=== PATIENT | female | born 1950 | race Caucasian/White ===

== ENCOUNTER 2016-08-16 09:04 | Inpatient (IN) | payer MEDICARE ==
[2016-08-14 14:06] LABS: BLOOD UREA NITROGEN 11 mg/dL (7-18)
[2016-08-14 14:10] LABS: ASPARTATE AMINO TRANSFERASE 39 U/L (15-37)
[~2016-08-16] VITALS: Ht 162.6 cm; Wt 76.3 kg
[~2016-08-16 09:04] MED LIST: AMLO5TAB2 PO; BUPIVACAINE/PF-EPI 0.25% 1:200K ONE; CELE200C PO; DULO30CA2 PO; ESTR5VIA IM; FURO-93 PO; HYDR-3138 PO; LEVO100T5 PO; LISI-170 PO; NEOSPORIN OINT, 15GM ONE; PREG100C PO; THROMBIN 5,000 UNIT VIAL TP ONE
[2016-08-16 09:34] VITALS: BP 167/96
[2016-08-16] MEDS ORDERED: VALIUM PO (09:44)
[2016-08-16] MEDS ORDERED: [UNRECOGNIZED DRUG - OTHER] PO (09:44)
[2016-08-16] MEDS ORDERED: ASPI-650 PO (09:44)
[2016-08-16] MEDS ORDERED: LIDOCAINE 1%, 2ML ONE (09:54)
[2016-08-16] MEDS ORDERED: LACTATED RINGERS 1,000 ML IV SCH (10:03)
[2016-08-16] MEDS ORDERED: MIDAZOLAM 1 MG/ML, 2ML ONE ×2 (10:40)
[2016-08-16] MEDS ORDERED: FENTANYL PF 250 MCG/5ML ONE ×2 (10:40)
[2016-08-16] MEDS ORDERED: REMIFENTANIL 2 MG ONE ×3 (10:53→14:54)
[2016-08-16] MEDS ORDERED: PROPOFOL 10 MG/ML, 20ML ONE (11:00)
[2016-08-16] MEDS ORDERED: SUCCINYLCHOLINE 20 MG/ML, 10ML ONE (11:00)
[2016-08-16] MEDS ORDERED: ONDANSETRON 2MG/ML, 2ML ONE (11:00)
[2016-08-16] MEDS ORDERED: CEFAZOLIN 1,000 MG ONE (11:00)
[2016-08-16] MEDS ORDERED: METOCLOPRAMIDE 5 MG/ML, 2ML ONE (11:00)
[2016-08-16] MEDS ORDERED: PROPOFOL 10 MG/ML, 50ML ONE (11:00)
[2016-08-16] MEDS ORDERED: PHENYLEPHRINE 10 MG/ML ONE (11:00)
[2016-08-16] MEDS ORDERED: BISACODYL 10 MG SUPP PR PRN (11:30)
[2016-08-16] MEDS ORDERED: PHARMACY MAY ADJ FOR RENAL FX MC PRN (11:30)
[2016-08-16] MEDS ORDERED: KETAMINE 10 MG/ML, 20ML ONE (11:59)
[2016-08-16] MEDS ORDERED: PROMETHAZINE 25 MG/ML, 1ML IV PRN (13:30)
[2016-08-16] MEDS ORDERED: LABETALOL 5MG/ML, 20ML IV PRN (13:30)
[2016-08-16] MEDS ORDERED: MIDAZOLAM 1 MG/ML, 2ML IV PRN (13:30)
[2016-08-16] MEDS ORDERED: ONDANSETRON 2MG/ML, 2ML IVPush PRN (13:30)
[2016-08-16] MEDS ORDERED: OXYcodone 5 MG/5 ML ORAL.SOL UDC PO PRN (13:30)
[2016-08-16] MEDS ORDERED: FENTANYL PF 100 MCG/2ML IV PRN (13:30)
[2016-08-16] MEDS ORDERED: MEPERIDINE/PF 25MG/0.5ML IVPush PRN (13:30)
[2016-08-16] MEDS ORDERED: hydrALAzine 20 MG/ML, 1ML IV PRN (13:30)
[2016-08-16] MEDS ORDERED: HYDROmorphone 1 MG/ML, 1ML ONE (15:36)
[2016-08-16] MEDS: PREGABALIN 100 MG CAPSULE PO SCH ×2 (16:00→20:06)
[2016-08-16] MEDS ORDERED: HYDROmorphone 2 MG/ML, 1ML ONE ×2 (16:02→16:16)
[2016-08-16] MEDS ORDERED: FENTANYL PF 100 MCG/2ML ONE (16:02)
[2016-08-16] MEDS: HYDROmorphone 1 MG/ML, 1ML IV PRN ×4 (16:22→16:42)
[2016-08-16] MEDS: METHOCARBAMOL 750 MG TABLET PO PRN ×2 (16:42→16:49)
[2016-08-16] MEDS ORDERED: METHOCARBAMOL 750 MG TABLET ONE (16:44)
[2016-08-16 17:50] VITALS: BP 112/53
[2016-08-16 18:53] VITALS: BP 115/54
[2016-08-16] MEDS: D5%-0.9% NACL+KCL 20MEQ 1,000 ML IV SCH (20:05)
[2016-08-16] MEDS: CEFAZOLIN PMX 1GM/50ML 50 ML IVPB SCH (20:05)
[2016-08-16] MEDS: HYDROmorphone 2MG TABLET PO PRN (20:06)
[2016-08-16] MEDS: ONDANSETRON 2MG/ML, 2ML IVPush PRN (21:58)
[2016-08-16 23:19] VITALS: BP 154/85
[2016-08-17] MEDS: METHOCARBAMOL 750 MG TABLET PO PRN ×3 (00:58→17:08)
[2016-08-17] MEDS: HYDROmorphone 2MG TABLET PO PRN ×3 (00:59→23:20)
[2016-08-17] MEDS: DULOXETINE 30 MG CAPSULE.DR PO SCH ×2 (01:30→21:29)
[2016-08-17 04:18] VITALS: BP 166/85
[2016-08-17] MEDS: CEFAZOLIN PMX 1GM/50ML 50 ML IVPB SCH (04:26)
[2016-08-17] MEDS: ONDANSETRON 2MG/ML, 2ML IVPush PRN (04:26)
[2016-08-17 07:25] VITALS: BP 147/53
[2016-08-17] MEDS: LISINOPRIL 20 MG TABLET PO SCH (08:12)
[2016-08-17] MEDS: LEVOTHYROXINE 100 MCG TABLET PO SCH (08:13)
[2016-08-17] MEDS: HYDROcodone/APAP 5/325 TABLET PO PRN ×4 (08:13→21:29)
[2016-08-17] MEDS: AMLODIPINE 5 MG TABLET PO SCH (08:13)
[2016-08-17] MEDS: PREGABALIN 100 MG CAPSULE PO SCH ×3 (08:13→21:29)
[2016-08-17] MEDS ORDERED: DULOXETINE 30 MG CAPSULE.DR PO SCH (09:00)
[2016-08-17] MEDS: D5%-0.9% NACL+KCL 20MEQ 1,000 ML IV SCH ×2 (10:54→21:28)
[2016-08-17 13:18] VITALS: BP 116/49
[2016-08-17] MEDS ORDERED: HYDROmorphone 2MG TABLET PO PRN (17:30)
[2016-08-17 18:55] VITALS: BP 105/62
[2016-08-18 01:30] VITALS: BP 126/68
[2016-08-18] MEDS: METHOCARBAMOL 750 MG TABLET PO PRN ×3 (02:57→20:00)
[2016-08-18] MEDS: HYDROcodone/APAP 5/325 TABLET PO PRN ×5 (02:57→21:34)
[2016-08-18] MEDS: D5%-0.9% NACL+KCL 20MEQ 1,000 ML IV SCH ×2 (06:08→16:35)
[2016-08-18 07:40] VITALS: BP 128/65
[2016-08-18] MEDS: AMLODIPINE 5 MG TABLET PO SCH (09:01)
[2016-08-18] MEDS: LISINOPRIL 20 MG TABLET PO SCH (09:02)
[2016-08-18] MEDS: PREGABALIN 100 MG CAPSULE PO SCH ×3 (09:02→21:34)
[2016-08-18] MEDS: LEVOTHYROXINE 100 MCG TABLET PO SCH (09:02)
[2016-08-18] MEDS: SENNA/DOCUSATE TABLET PO PRN (11:42)
[2016-08-18 13:22] VITALS: BP 137/74
[2016-08-18 19:12] VITALS: BP 147/78
[2016-08-18] MEDS: HYDROmorphone 2MG TABLET PO PRN (19:52)
[2016-08-18] MEDS: DULOXETINE 30 MG CAPSULE.DR PO SCH (21:34)
[2016-08-19 01:03] VITALS: BP 153/83
[2016-08-19] MEDS: HYDROcodone/APAP 5/325 TABLET PO PRN ×5 (01:12→19:50)
[2016-08-19] MEDS: D5%-0.9% NACL+KCL 20MEQ 1,000 ML IV SCH ×2 (01:46→15:42)
[2016-08-19] MEDS: HYDROmorphone 2MG TABLET PO PRN ×4 (04:38→23:16)
[2016-08-19] MEDS: METHOCARBAMOL 750 MG TABLET PO PRN (04:38)
[2016-08-19 07:50] VITALS: BP 132/63
[2016-08-19] MEDS: SENNA/DOCUSATE TABLET PO PRN (07:53)
[2016-08-19] MEDS: MAGNESIUM HYDROXIDE 8%, 30ML UDC PO PRN (07:53)
[2016-08-19] MEDS: LEVOTHYROXINE 100 MCG TABLET PO SCH (07:54)
[2016-08-19] MEDS: LISINOPRIL 20 MG TABLET PO SCH (07:54)
[2016-08-19] MEDS: PREGABALIN 100 MG CAPSULE PO SCH ×3 (07:54→21:19)
[2016-08-19] MEDS: AMLODIPINE 5 MG TABLET PO SCH (07:54)
[2016-08-19 13:45] VITALS: BP 133/66
[2016-08-19] MEDS: TAMSULOSIN 0.4 MG CAP.ER.24H PO SCH (19:49)
[2016-08-19 19:57] VITALS: BP 143/65
[2016-08-19] MEDS: DULOXETINE 30 MG CAPSULE.DR PO SCH (21:19)
[2016-08-20] MEDS: METHOCARBAMOL 750 MG TABLET PO PRN ×3 (00:58→17:11)
[2016-08-20] MEDS: HYDROcodone/APAP 5/325 TABLET PO PRN ×5 (02:02→21:19)
[2016-08-20 03:25] VITALS: BP 146/75
[2016-08-20] MEDS: HYDROmorphone 2MG TABLET PO PRN (05:50)
[2016-08-20 06:57] VITALS: BP 138/82
[2016-08-20] MEDS: LEVOTHYROXINE 100 MCG TABLET PO SCH (07:47)
[2016-08-20] MEDS: AMLODIPINE 5 MG TABLET PO SCH (07:48)
[2016-08-20] MEDS: SENNA/DOCUSATE TABLET PO PRN (07:48)
[2016-08-20] MEDS: LISINOPRIL 20 MG TABLET PO SCH (07:48)
[2016-08-20] MEDS: PREGABALIN 100 MG CAPSULE PO SCH ×3 (07:48→21:18)
[2016-08-20] MEDS: MAGNESIUM HYDROXIDE 8%, 30ML UDC PO PRN (07:48)
[2016-08-20] MEDS: TAMSULOSIN 0.4 MG CAP.ER.24H PO SCH (07:48)
[2016-08-20] MEDS: D5%-0.9% NACL+KCL 20MEQ 1,000 ML IV SCH ×2 (09:21→17:11)
[2016-08-20 14:20] VITALS: BP 121/64
[2016-08-20] MEDS ORDERED: OXYMETAZOLINE NASAL SPRAY 0.05%, 15ML NAS PRN (17:00)
[2016-08-20] MEDS: METOCLOPRAMIDE 5 MG/ML, 2ML IVPush SCH ×2 (17:11→23:01)
[2016-08-20] MEDS: CALCIUM CARBONATE 500 MG TAB.CHEW PO PRN ×2 (17:17→23:12)
[2016-08-20 20:07] VITALS: BP 126/68
[2016-08-20] MEDS: DULOXETINE 30 MG CAPSULE.DR PO SCH (21:18)
[2016-08-20] MEDS: DIPHENHYDRAMINE 50 MG/ML, 1ML IVPush PRN (23:13)
[2016-08-21 01:18] VITALS: BP 170/77
[2016-08-21] MEDS: METHOCARBAMOL 750 MG TABLET PO PRN ×3 (01:23→17:05)
[2016-08-21] MEDS: D5%-0.9% NACL+KCL 20MEQ 1,000 ML IV SCH ×3 (01:38→21:53)
[2016-08-21] MEDS: HYDROcodone/APAP 5/325 TABLET PO PRN ×5 (02:02→18:00)
[2016-08-21] MEDS: METOCLOPRAMIDE 5 MG/ML, 2ML IVPush SCH ×4 (05:28→22:15)
[2016-08-21] MEDS: LEVOTHYROXINE 100 MCG TABLET PO SCH ×2 (06:04→09:15)
[2016-08-21 06:39] VITALS: BP 156/81
[2016-08-21] MEDS: TAMSULOSIN 0.4 MG CAP.ER.24H PO SCH (09:15)
[2016-08-21] MEDS: PREGABALIN 100 MG CAPSULE PO SCH ×3 (09:15→20:03)
[2016-08-21] MEDS: AMLODIPINE 5 MG TABLET PO SCH (09:15)
[2016-08-21] MEDS: LISINOPRIL 20 MG TABLET PO SCH (09:15)
[2016-08-21] MEDS: CALCIUM CARBONATE 500 MG TAB.CHEW PO PRN ×2 (10:42→22:07)
[2016-08-21 13:24] VITALS: BP 144/86
[2016-08-21] MEDS: HYDROmorphone 2MG TABLET PO PRN ×2 (14:49→19:39)
[2016-08-21] MEDS: MAGNESIUM HYDROXIDE 8%, 30ML UDC PO PRN (14:49)
[2016-08-21 18:55] VITALS: BP 167/78
[2016-08-21] MEDS: DIPHENHYDRAMINE 50 MG/ML, 1ML IVPush PRN (19:44)
[2016-08-21] MEDS: DULOXETINE 30 MG CAPSULE.DR PO SCH (20:03)
[2016-08-21] MEDS: HYDROcodone/APAP 10/325 MG TABLET PO PRN (22:07)
[2016-08-22] MEDS: HYDROmorphone 2MG TABLET PO PRN ×6 (00:39→21:03)
[2016-08-22 00:51] VITALS: BP 169/91
[2016-08-22] MEDS: METHOCARBAMOL 750 MG TABLET PO PRN ×2 (01:08→11:19)
[2016-08-22] MEDS: HYDROcodone/APAP 10/325 MG TABLET PO PRN ×5 (02:03→22:22)
[2016-08-22] MEDS: DIPHENHYDRAMINE 50 MG/ML, 1ML IVPush PRN ×4 (02:03→23:47)
[2016-08-22] MEDS: METOCLOPRAMIDE 5 MG/ML, 2ML IVPush SCH ×4 (05:41→23:48)
[2016-08-22] MEDS ORDERED: FAMO10TA77 PO (06:46)
[2016-08-22] MEDS ORDERED: HYDR-883 PO (06:46)
[2016-08-22] MEDS ORDERED: FURO-93 PO (06:46)
[2016-08-22] MEDS ORDERED: RANI75TA12 PO (06:46)
[2016-08-22] MEDS ORDERED: AMIT25TA PO (06:46)
[2016-08-22 07:17] VITALS: BP 159/82
[2016-08-22] MEDS: LEVOTHYROXINE 100 MCG TABLET PO SCH (08:17)
[2016-08-22] MEDS: AMLODIPINE 5 MG TABLET PO SCH (08:17)
[2016-08-22] MEDS: PREGABALIN 100 MG CAPSULE PO SCH ×3 (08:17→20:51)
[2016-08-22] MEDS: TAMSULOSIN 0.4 MG CAP.ER.24H PO SCH (08:17)
[2016-08-22] MEDS: LISINOPRIL 20 MG TABLET PO SCH (08:17)
[2016-08-22] MEDS: D5%-0.9% NACL+KCL 20MEQ 1,000 ML IV SCH ×2 (09:37→20:30)
[2016-08-22 12:58] VITALS: BP 154/82
[2016-08-22] MEDS ORDERED: FUROSEMIDE 20 MG/2 ML IV PRN (16:30)
[2016-08-22 19:22] VITALS: BP 185/92
[2016-08-22 20:16] VITALS: BP 162/83
[2016-08-22] MEDS: DULOXETINE 30 MG CAPSULE.DR PO SCH (20:51)
[2016-08-23 00:40] VITALS: BP 199/102
[2016-08-23] MEDS: HYDROmorphone 2MG TABLET PO PRN ×5 (01:12→22:05)
[2016-08-23] MEDS: hydrALAzine 20 MG/ML, 1ML IV PRN ×2 (02:00→13:30)
[2016-08-23] MEDS: HYDROcodone/APAP 10/325 MG TABLET PO PRN ×5 (02:37→20:36)
[2016-08-23] MEDS: METHOCARBAMOL 750 MG TABLET PO PRN ×3 (03:05→20:36)
[2016-08-23] MEDS: D5%-0.9% NACL+KCL 20MEQ 1,000 ML IV SCH ×2 (06:30→16:30)
[2016-08-23 06:52] VITALS: BP 175/97
[2016-08-23] MEDS: METOCLOPRAMIDE 5 MG/ML, 2ML IVPush SCH ×3 (07:16→17:22)
[2016-08-23] MEDS: AMLODIPINE 5 MG TABLET PO SCH (10:12)
[2016-08-23] MEDS: PREGABALIN 100 MG CAPSULE PO SCH ×3 (10:12→20:36)
[2016-08-23] MEDS: LEVOTHYROXINE 100 MCG TABLET PO SCH (10:13)
[2016-08-23] MEDS: LISINOPRIL 20 MG TABLET PO SCH (10:13)
[2016-08-23] MEDS: TAMSULOSIN 0.4 MG CAP.ER.24H PO SCH (10:13)
[2016-08-23 13:10] VITALS: BP 188/94
[2016-08-23 19:28] VITALS: BP 180/82
[2016-08-23] MEDS: DULOXETINE 30 MG CAPSULE.DR PO SCH (20:36)
[2016-08-23] MEDS ORDERED: ONDANSETRON 4 MG TABLET PO PRN (23:30)
[2016-08-23] MEDS: METOCLOPRAMIDE 10MG TABLET PO SCH (23:30)
[2016-08-23] MEDS ORDERED: DIPHENHYDRAMINE 50 MG CAPSULE PO PRN (23:30)
[2016-08-24] MEDS: HYDROcodone/APAP 10/325 MG TABLET PO PRN ×4 (00:33→13:08)
[2016-08-24] MEDS: CALCIUM CARBONATE 500 MG TAB.CHEW PO PRN (00:39)
[2016-08-24 01:00] VITALS: BP 199/107
[2016-08-24] MEDS: MAGNESIUM HYDROXIDE 8%, 30ML UDC PO PRN (01:14)
[2016-08-24] MEDS: HYDROmorphone 2MG TABLET PO PRN ×3 (01:24→16:05)
[2016-08-24] MEDS: D5%-0.9% NACL+KCL 20MEQ 1,000 ML IV SCH ×2 (02:30→12:30)
[2016-08-24] MEDS: METHOCARBAMOL 750 MG TABLET PO PRN (04:38)
[2016-08-24 05:55] VITALS: BP 161/72
[2016-08-24] MEDS: METOCLOPRAMIDE 10MG TABLET PO SCH ×2 (06:03→13:08)
[2016-08-24 07:09] VITALS: BP 168/77
[2016-08-24] MEDS: LEVOTHYROXINE 100 MCG TABLET PO SCH (08:07)
[2016-08-24] MEDS: TAMSULOSIN 0.4 MG CAP.ER.24H PO SCH (08:07)
[2016-08-24] MEDS: AMLODIPINE 5 MG TABLET PO SCH (08:07)
[2016-08-24] MEDS: PREGABALIN 100 MG CAPSULE PO SCH (08:08)
[2016-08-24] MEDS: LISINOPRIL 20 MG TABLET PO SCH (08:08)
[2016-08-24 13:36] VITALS: BP 146/76
== END 2016-08-24 16:10 | DRG 458 ==
LOC: ORIP 09:04 → 4NOR 17:39
PROVIDERS: ADMIT Orthopaedic Surgery Orthopaedic Surgery of the Spine; ATTEND Orthopaedic Surgery Orthopaedic Surgery of the Spine
PROC: 0SG Lower Joints, Fusion (ICD-10-PCS; 2016-08-16)
PROC: 0RB Upper Joints, Excision (ICD-10-PCS; 2016-08-16)
PROC: 0SB24ZZ Excision of Lumbar Vertebral Disc, Percutaneous Endoscopic Approach (ICD-10-PCS; 2016-08-16)
PROC: 4A11X4G Monitoring of Peripheral Nervous Electrical Activity, Intraoperative, External Approach (ICD-10-PCS; 2016-08-16)
PROC: 0RG Upper Joints, Fusion (ICD-10-PCS; principal; 2016-08-16 11:00)
DX: M41.86 Other forms of scoliosis, lumbar region (principal); M48.06 Spinal stenosis, lumbar region; M48.04 Spinal stenosis, thoracic region; G89.29 Other chronic pain; R33.9 Retention of urine, unspecified; I10 Essential (primary) hypertension; E03.9 Hypothyroidism, unspecified; M19.90 Unspecified osteoarthritis, unspecified site; M21.371 Foot drop, right foot; M51.15 Intervertebral disc disorders with radiculopathy, thoracolumbar region; M51.16 Intervertebral disc disorders with radiculopathy, lumbar region; Z88.2 Allergy status to sulfonamides; Z88.8 Allergy status to other drugs, medicaments and biological substances; Z88.5 Allergy status to narcotic agent; Z79.899 Other long term (current) drug therapy
CPT/HCPCS: 36415; 70450; 71010; 71020; 72100; 72110; 80053; 81003; 85025; 86850; 86900; 86923; 93005; 95938; 95941; C1713; J0690; J1170; J2250; J2405; J2704; J3010; C1762; J0330; J0360; J1200; J2370; J2765; J3480; J7120